=== PATIENT | male | born 1960 | race Caucasian/White ===

== ENCOUNTER 2019-04-20 11:13 | Outpatient (CLI) | payer BC | END 2019-04-20 11:14 | disposition home or self-care (01) | LOC: DI 11:13 | PROVIDERS: ATTEND Nurse Practitioner Family | DX: I48.91 Unspecified atrial fibrillation (principal) | CPT/HCPCS: 93306 ==

== ENCOUNTER 2021-07-13 06:27 | Day surgery (SDC) | payer BC ==
[2021-07-13] MEDS ORDERED: LACTATED RINGERS 1,000 ML IV ONE ×2 (07:02→08:23)
[2021-07-13] MEDS ORDERED: fentaNYL 250 MCG/5 ML VIAL ONE (07:15)
[2021-07-13] MEDS ORDERED: MIDAZOLAM 2 MG/2 ML VIAL ONE ×2 (07:15)
[2021-07-13 08:23] VITALS: BP 118/72
== END 2021-07-13 06:28 | disposition home or self-care (01) ==
LOC: SDS 06:27
PROVIDERS: ATTEND Surgery
DX: Z12.11 Encounter for screening for malignant neoplasm of colon (principal); K64.8 Other hemorrhoids; K62.89 Other specified diseases of anus and rectum; C61 Malignant neoplasm of prostate; Z86.010 Personal history of colon polyps
CPT/HCPCS: 45378; J3010; J7120

== ENCOUNTER 2021-12-02 15:17 | Outpatient (CLI) | payer BC ==
--- NOTE | 2021-12-02 16:13 | XRAY Report ---
PROCEDURE: Shoulder 3 View RT INDICATIONS: XRAY RIGHT SHOULDER TECHNIQUE: 3 views of the shoulder were acquired. COMPARISON: None. FINDINGS: Bones: No fractures or dislocations. No suspicious bony lesions. Visualized ribs appear intact. G lenohumeral joint degenerative arthritis. Soft tissues: No suspicious soft tissue calcifications. IMPRESSION: Glenohumeral joint degenerative arthritis. No evidence acute bony abnormality of the rig ht shoulder. If clinical suspicion and/or symptoms persist, further assessment with repeat plain films or advanced imaging (e.g., CT, MRI, or bone scan) may be helpful for further assessment. Reviewed by: Jose Manuel Oliveira MD on 12/02/2021 4:11 PM PST Approved by: Jose Manuel Oliveira MD on 12/02/2021 4:11 PM PST Station ID: [id number]
== END 2021-12-02 15:18 | disposition home or self-care (01) ==
LOC: DI.S 15:17
PROVIDERS: ATTEND Registered Nurse
DX: M19.011 Primary osteoarthritis, right shoulder (principal)

== ENCOUNTER 2023-02-03 13:13 | Emergency (ER) | payer BC ==
[2023-02-03 13:27] VITALS: BP 107/70
--- NOTE | 2023-02-03 13:36 | ED Physician Documentation ---
PD HPI LOWER EXT INJURY - Stated complaint Stated Complaint: LT KNEE INJ - Chief complaint Chief Complaint: Trauma Ext - History obtained from History obtained from: Patient - Additional information Additional information: Patient is a 62-year-old male presenting for evaluation of left knee pain that occurred while skiing yesterday morning. Patient reports around 11:00 he had a fall while skiing. He fell back but is legs stayed forward and he felt pain in his left knee. He denies head injury or LOC. He was able to ski back down the mountain but was otherwise done for the day. He reports continued pain to the lateral aspect of the left knee. He denies prior injuries to this extremity. He does not take a blood thinner.He has been using a knee brace which is helpful. Review of Systems Constitutional: denies: Fever Cardiac: denies: Chest pain / pressure Respiratory: denies: Dyspnea GI: denies: Abdominal Pain Musculoskeletal: reports: Joint pain Neurologic: denies: Headache PD PAST MEDICAL HISTORY - Past Medical History Cardiovascular: Atrial fibrillation : Other Psych: Depression - Past Surgical History Ortho: Other - Present Medications Home Medications: Ambulatory Orders Medication Instructions Recorded Confirmed Aspirin [[place] Aspirin] 81 mg PO DAILY 07/12/21 02/03/23 Tamsulosin [Flomax] 0.4 mg PO DAILY 07/12/21 02/03/23 buPROPion [Wellbutrin Xl] 150 mg PO DAILY 07/12/21 07/13/21 - Allergies Allergies/Adverse Reactions: Allergies Allergy/AdvReac Type Severity Reaction Status Date / Time No Known Drug Allergies Allergy Verified 02/03/23 13:26 PD ED PE NORMAL - General General: Alert and oriented X 3, No acute distress, Well developed/nourished - HEENT HEENT: Atraumatic - Cardiac Cardiac: Strong equal pulses - Respiratory Respiratory: No respiratory distress - Extremities Extremities: No deformity, Normal ROM s pain, No edema, No calf tenderness / cord, Other (Mild tenderness to left lateral knee with no laxity with anterior/posterior stress or varus/valgus stress) - Neuro Neuro: No motor deficit, No sensory deficit Results - Vitals Vitals: Vital Signs - 24 hr 02/03/23 13:23 Temperature 36.8 C Heart Rate 108 H Respiratory 20 Rate Blood Pressure 107/70 O2 Saturation 98 Oxygen O2 Source Room air PD Medical Decision Making - ED course Complexity details: reviewed results, d/w patient ED course: Patient is a 62-year-old male presenting for evaluation of Left knee pain after skiing yesterday. He is ambulating here and there is no visible deformity.He has full range of motion of the left knee. Neurovascularly intact. An x-ray was obtained which I reviewed the images of and do not see a fracture or dislocation. Discussed possible other etiologies of his pain. Patient was placed into a knee immobilizer. He declined crutches. He is comfortable with plan for discharge And need for close follow-up with his PCP. He declined need for narcotic pain medications. He is advised on concerning symptoms to return for. Departure - Departure Disposition: 01 Home, Self Care Clinical Impression: Left knee injury Condition: Stable Instructions: ED Knee Pain [facility] Follow-Up: Ethel Rios ARNP [Primary Care Provider] - Comments: You have sustained an injury to your left knee. At this time I do not see a fracture or dislocation on your x-ray. There are other structures in your knee that can be injured which do not show up well on an x-ray. For the time being we will place you into a knee immobilizer. Please use this for support. I would continue with anti-inflammatory such as acetaminophen or ibuprofen, rest, ice, elevation. If your pain is not getting better over the course of the next week then I would recommend close follow-up with your primary care. Return to the ER with any worsening symptoms such as increased pain, pain in a new location. Discharge Date/Time: 02/03/23 14:20
--- NOTE | 2023-02-03 14:32 | XRAY Report ---
PROCEDURE: Knee 3 View LT INDICATIONS: fall/skiing TECHNIQUE: 3 views of the left knee were acquired. COMPARISON: None. FINDINGS: Bones: No acute fractures or dislocations. No suspicious bony lesions. Soft tissues: No joint effusion. No suspicious soft tissue calcifications. IMPRESSION: No acute cardiopulmonary abnormality. Reviewed by: Gerard Ramirez MD on 02/03/2023 2:30 PM PDT Approved by: Gerard Ramirez MD on 02/03/2023 2:30 PM PDT Station ID: [id number]
== END 2023-02-03 14:20 | disposition home or self-care (01) ==
LOC: ED 13:13
DX: S89.92XA Unspecified injury of left lower leg, initial encounter (principal); X58.XXXA Exposure to other specified factors, initial encounter; Y93.23 Activity, snow (alpine) (downhill) skiing, snowboarding, sledding, tobogganing and snow tubing
CPT/HCPCS: 99283

== ENCOUNTER 2023-02-20 09:58 | Outpatient (CLI) | payer BC ==
--- NOTE | 2023-02-20 14:28 | MRI Report ---
PROCEDURE: KNEE WO - LT INDICATIONS: LEFT KNEE PAIN TECHNIQUE: Noncontrast sagittal PD fast spin echo and T2 fast spin echo with fat saturation, sagittal 3-D spoile d GE with fat saturation; coronal T1 spin echo and PD fast spin echo with fat saturation, and axial P D fast spin echo with fat saturation through the knee. COMPARISON: Left knee radiographs 02/03/2023 FINDINGS: Image quality: Excellent. Anterior cruciate ligament: Intact. Posterior cruciate ligament: There is complete tearing of the mid substance of the anterior cruciate ligament. Medial collateral ligament: There is partial tearing of the mid substance of the medial collateral l igament. Some of the posterior ligament fibers remain in continuity. Surrounding soft tissue edema is noted. Lateral collateral ligament: Intact. Medial meniscus: There is a suspected subtle horizontal oblique tear at the junction of the posterio r horn and body of the medial meniscus extending to the outer third of the tibial articular surface. Lateral meniscus: Intact. Medial and lateral tendons: The semimembranosus tendon insertions appear intact. Visualized portion s of the pes anserinus tendons appear normal. The popliteus tendon appears intact. Iliotibial band appears normal. Anterior structures: Mild patella rudy. The distal quadriceps tendon is intact. No patellar subluxat ion. No femoral trochlear dysplasia or ventral trochlear prominence. No edema in the infrapatellar fat pad. Bones: Small impaction trabecular bone injury and minimally impacted fracture of the far posterior p ortion of the lateral tibial plateau. Small area of trabecular bone injury is also seen at the centra l weightbearing portion of the medial femoral condyle. Medial femorotibial cartilage: Mild partial thickness cartilage thinning in the weightbearing portio n of the medial femorotibial compartment. Lateral femorotibial cartilage: Focal high-grade partial thickness cartilage loss at the posterior w eightbearing portion of the lateral tibial plateau adjacent to the impaction fracture. Patellofemoral cartilage: Focal deep cartilage fissuring is seen at the median ridge of the patella. Soft tissues: There is a small joint effusion. There is a moderate medial popliteal cyst with surro unding soft tissue edema that is suspicious for prior cyst rupture. The musculature surrounding the k nee is normal in bulk. IMPRESSION: 1.Complete rupture of the mid substance of the anterior cruciate ligament. 2.Partial tearing of the medial collateral ligament at the midportion. Some of the posterior ligament fibers remain in continuity. 3.Subtle horizontal oblique tear at the junction of the posterior horn and body medial meniscus exten ding to the outer third of the tibial articular surface. 4.Small impaction fracture at the far posterior portion of the lateral tibial plateau with surroundin g trabecular bone injury and edema. Adjacent focal high-grade partial thickness cartilage loss is see n in the posterior portion of the lateral tibial plateau. Mild trabecular bone injury at the central weightbearing portion of the medial femoral condyle. 5.Mild patella rudy. 6.Small joint effusion. Moderate medial popliteal cyst with signs of cyst rupture. Reviewed by: Gerard Ramirez MD on 02/20/2023 2:27 PM PDT Approved by: Gerard Ramirez MD on 02/20/2023 2:27 PM PDT Station ID: [id number]
== END 2023-02-20 09:59 | disposition home or self-care (01) ==
LOC: DI 09:58
PROVIDERS: ATTEND Nurse Practitioner Family
DX: S83.512A Sprain of anterior cruciate ligament of left knee, initial encounter (principal); S83.412A Sprain of medial collateral ligament of left knee, initial encounter; S83.242A Other tear of medial meniscus, current injury, left knee, initial encounter; S82.142A Displaced bicondylar fracture of left tibia, initial encounter for closed fracture; M94.28 Chondromalacia, other site; M71.22 Synovial cyst of popliteal space [Baker], left knee

== ENCOUNTER 2023-02-26 14:06 | Outpatient (CLI) | payer BC ==
--- NOTE | 2023-02-26 09:10 | XRAY Report ---
PROCEDURE: Knee 3 View LT INDICATIONS: LEFT KNEE PAIN TECHNIQUE: 3 views of the left knee(s) were acquired. COMPARISON: None. FINDINGS: Bones: No fractures or dislocations. No suspicious bony lesions. Doubtful narrowing of joint spac e and possible osteophytic lipping of the medial tibial femoral compartment. Patella rudy. Soft tissues: Mild knee joint effusion. No suspicious soft tissue calcifications or masses. IMPRESSION: Patella rudy. Kellgren-Esdras scale of osteoarthritis: Grade 1-2: mild osteoarthritis. This is isolated to the me dial tibiofemoral compartment. Reviewed by: Renan Driver on 02/26/2023 9:09 AM PDT Approved by: Renan Driver on 02/26/2023 9:09 AM PDT Station ID: [id number]
== END 2023-02-26 14:07 | disposition home or self-care (01) ==
LOC: DI.WOS 14:06
PROVIDERS: ATTEND Orthopaedic Surgery
DX: M17.12 Unilateral primary osteoarthritis, left knee (principal); M22.2X2 Patellofemoral disorders, left knee